=== PATIENT | male | born 1965 | race Caucasian/White ===

== ENCOUNTER 2017-01-16 15:41 | Emergency (ER) | payer BC ==
[~2017-01-16] VITALS: Ht 175.3 cm; Wt 94.3 kg
[~2017-01-16 15:41] MED LIST: BENA10TA25 PO; IBUP-1801 PO; OMEP20TC10 PO; SIMV20TA6 PO
[2017-01-16 16:07] VITALS: BP 143/86
--- NOTE | 2017-01-16 17:10 | NUR ---
PT PRESENTS TO ER W/C/O SORE THROAT AND TOOTH PAIN X3 WEEKS. PT STATES HE WAS SEEN IN URGENT CARE 1 WEEK AGO AND GIVEN ABX, BUT SX HAVE PERSISTED. HX HTN. DENIES N/V/D; SKIN IS PINK/WARM/DRY; AAOX4 WITH EVEN AND STEADY GAIT; LUNGS CLEAR BL; HR EVEN AND REGULAR; PT DENIES ANY FEVER, CP, SOB, OR COUGH AT THIS TIME; PATIENT STATES PAIN OF 4/10 AT THIS TIME; VSS; PATIENT POSITIONED FOR COMFORT; HOB ELEVATED; BEDRAILS UP X2; BED DOWN. ER MD MADE AWARE OF PT STATUS.
[2017-01-16] MEDS ORDERED: CLINDAMYCIN 600 MG/4 ML VIAL IM ONE (17:30)
[2017-01-16] MEDS ORDERED: KETOROLAC 60 MG/2 ML VIAL IM ONE (17:30)
[2017-01-16] MEDS ORDERED: DEXAMETHASONE 10 MG/ML VIAL IM ONE (17:30)
--- NOTE | 2017-01-16 17:30 | NUR ---
Patient being evaluated by DR FAULKNER at bedside.
[2017-01-16 18:11] VITALS: BP 151/90
--- NOTE | 2017-01-16 18:12 | NUR ---
PATIENT ELOPED FROM FACILITY. DISCHARGE INSTRUCTIONS NOT GIVEN TO PATIENT. NOTIFIED.
== END 2017-01-16 18:12 | disposition left against medical advice (07) ==
LOC: MED 15:41
DX: J02.9 Acute pharyngitis, unspecified (principal); K08.89 Other specified disorders of teeth and supporting structures; I10 Essential (primary) hypertension; Z79.899 Other long term (current) drug therapy
CPT/HCPCS: 99283